=== PATIENT | female | born 1960 | race Caucasian/White ===

== ENCOUNTER 2021-12-31 14:42 | Emergency (ER) | payer MEDICAID, SELFPAY ==
[2021-12-31 14:43] VITALS: BP 119/58; PULSE 76; RESP 18; TEMP 36.2; O2SAT 98; BMI 37.0
--- NOTE | 2021-12-31 15:42 | CT_ITS ---
PROCEDURE INFORMATION: Exam: CT Lumbar Spine Without Contrast Exam date and time: 12/31/2021 3:42 PM Age: 61 years old Clinical indication: Low back pain; Additional info: Acute on chronic lumbar pain after carrying 20lbs TECHNIQUE: Imaging protocol: Computed tomography images of the lumbar spine without contrast. Radiation optimization: All CT scans at this facility use at least one of these dose optimization techniques: automated exposure control; mA and/or kV adjustment per patient size (includes targeted exams where dose is matched to clinical indication); or iterative reconstruction. COMPARISON: CT LUMBAR SPINE WO CON 10/05/2019 5:22 PM FINDINGS: Vertebrae: No acute skeletal pathology. Severe multilevel degenerative changes of the spine, as manifested by multilevel anterior osteophytes and multilevel decrease in intervertebral disc space. There is stable grade 1 retrolisthesis of L3 in relation to L4, causing [id number] central canal stenosis at this level. Findings are stable. There is no evidence of acutely displaced fractures. Discs/Spinal canal/Neural foramina: Near complete loss of the intervertebral disc space at L5-S1 with evidence of early chronic fusion. There is grade 1 retrolisthesis of L5 in relation to S1, causing stable mild central canal stenosis at this level. There is stable moderate bilateral bony neural foraminal stenosis appreciated at L4-L5 and L5-S1. There is mild bilateral neural foraminal stenosis at L3-L4, also stable. No other significant neural foraminal stenosis appreciated. Remainder of the spinal canal is patent. Other bones/joints: There is no evidence of joint dislocation. No aggressive osseous lesions. Intraperitoneal space: The visualized intra-abdominal structures demonstrate no acute findings. Vasculature: The vasculature demonstrates diffuse moderate atherosclerotic calcification. Soft tissues: No significant prevertebral or paravertebral soft tissue swelling. IMPRESSION: Severe and stable multilevel degenerative changes without acute skeletal pathology.
--- NOTE | 2021-12-31 15:46 | HMH.EDGENADL ---
ED Disposition Clinical Impression: Lumbar radiculopathy, Acute exacerbation of chronic low back pain Disposition: Home, Self-Care Condition on Discharge: Good Instructions: DI for Low Back Pain Prescriptions: Lidocaine [Lidocaine 5% patch] 1 patch TP Q24H PRN #4 patch PRN Reason: back pain Transmission Status: Pending to [facility] methocarbamoL [Methocarbamol 500mg Tablet] 500 mg PO BID PRN 10 Days #20 tab PRN Reason: back spasm Transmission Status: Pending to [facility] Gabapentin [Neurontin 300mg capsule] 300 mg PO BID 10 Days #20 cap Transmission Status: Sent to [facility] Oxycodone HCl [Oxycodone 5mg tab (IR)] 5 mg PO Q6H PRN #6 tab PRN Reason: severe back pain Transmission Status: Sent to [facility] Referrals: Dayan Jones [Primary Care Provider] - - Critical Care Critical Care Time: No Attestation: On 12/31/21, the high probability of a clinically significant, sudden or life threatening deterioration of the following system(s) required my full and direct attention, intervention and personal management. The time I documented below is in addition to time spent performing reported procedures but includes the following listed in this critical care notation. Medical Decision Making - Jackson Inquiry Pt receiving controlled substance: Yes Jackson was queried for this patient: Yes Risks and benefits of using a controlled substance: were discussed with pt by me Vital Signs: 12/31/21 14:43 Temperature 97.1 F L Temperature Source Oral Pulse Rate [Radial] 76 Respiratory Rate 18 Blood Pressure [Right Arm] 119/58 L Blood Pressure Mean [Right Arm] 78 Blood Pressure Position [Right Arm] Sitting 02 Sat by Pulse Oximetry 98 Oxygen Delivery Method Room Air Orders (Tests/Meds): ED MEDICATIONS Generic Name Dose Route Start Last Admin Trade Name Freq PRN Reason Stop Dose Admin Methocarbamol 750 mg 12/31/21 21:00 12/31/21 15:51 Methocarbamol 500mg Tablet PO 01/30/22 20:59 750 mg BID LESTER Administration Oxycodone HCl 5 mg 12/31/21 16:26 12/31/21 16:35 Oxycodone 5mg Immediate Release Tablet PO 01/30/22 16:25 5 mg Q4HP PRN Administration Severe Pain Discontinued Medications Generic Name Dose Route Start Last Admin Trade Name Carlos Enrique PRN Reason Stop Dose Admin Acetaminophen 1,000 mg 12/31/21 15:42 12/31/21 15:50 Acetaminophen 500mg Tab PO 12/31/21 15:43 1,000 mg ONCE ONE Administration Gabapentin 300 mg 12/31/21 16:04 12/31/21 16:08 Gabapentin 300mg Capsule PO 12/31/21 16:05 300 mg ONCE ONE Administration Ketorolac Tromethamine 15 mg 12/31/21 15:42 12/31/21 15:50 Ketorolac 30mg/Ml Vial IM 12/31/21 15:43 15 mg ONCE ONE Administration Lidocaine 1 each 12/31/21 15:42 12/31/21 15:50 Lidocaine 5% Transdermal Patch TP 12/31/21 15:43 1 each ONCE ONE Administration Medical Decision Narrative: 61 yo female with history of CLBP w/ sciatica presents for atraumatic acute flare of chronic left lower back pain with radiation to LLE. No acute neuro deficits. Back pain red flags reviewed per hpi. Has positive straight leg test on left and positive cross straight leg test as well. No saddle anesthesia. DDx includes but not limited to muscle spasm, muscle strain, lumbar radiculopathy, lumbar spine fracture or dislocation, herniated disc. No recent illness and no acute severe pain prior to this incident of carrying heavy weight. Other causes of left lower back pain considered included aortic pathology, renal pathology including nephrolithiasis, intraabdominal pathology such as abscess, colitis, diverticulitis, skeletal pathology including hip or pelvis injury. These were deemed less likely given patient's reported history, pattern of pain, signs on exam. Patient given robaxin, lidocaine patch, tylenol, toradol, gabapentin here in the ED for pain. CT lumbar spine ordered. CT lum
[2021-12-31 18:46] VITALS: BP 135/60; PULSE 88; RESP 18; TEMP 36.4; O2SAT 98
== END 2021-12-31 18:49 | disposition home or self-care (01) ==
PROVIDERS: Emergency Provider Student in an Organized Health Care Education/Training Program; PCP Nurse Practitioner Family
DX: M54.16 Radiculopathy, lumbar region (principal); M54.50 Low back pain, unspecified; X50.0XXA Overexertion from strenuous movement or load, initial encounter; Y92.019 Unspecified place in single-family (private) house as the place of occurrence of the external cause
CPT/HCPCS: 72131; 96372; 99282; 99284

== ENCOUNTER 2022-02-05 13:23 | Emergency (ER) | payer MEDICAID, SELFPAY ==
[2022-02-05] VITALS (7 sets, daily range): BP systolic 120–153; BP diastolic 57–90; PULSE 64–86; RESP 16; TEMP 36.6–37; O2SAT 98–99; BMI 37.0
--- NOTE | 2022-02-05 14:49 | PC.NURSE ---
pt sitting in bed resting
--- NOTE | 2022-02-05 16:26 | HMH.EDGENADL ---
ED Disposition Clinical Impression: Low back pain Qualifiers: Chronicity: chronic Back pain laterality: bilateral Sciatica presence: with sciatica Sciatica laterality: bilateral sciatica Qualified Code(s): M54.42 - Lumbago with sciatica, left side; M54.41 - Lumbago with sciatica, right side; G89.29 - Other chronic pain Disposition: Home, Self-Care Condition on Discharge: Fair Additional Instructions: Tylenol 3, then Percocet as prescribed. Medrol Dosepak as prescribed. Follow-up for your MRI and spine surgeon appointments as previously scheduled. Return to the emergency department if worsening pain, worsening weakness of the legs, numbness of groin area. Additional instructions for CONTROLLED SUBSTANCES: You have been prescribed a medication that is a controlled substance. Controlled substances include pain medications known as opiates and sedative nerve medications known as benzodiazepines. Tramadol, fioricet, and gabapentin are also controlled substances. Some common opiates include: Codeine (such as Tylenol #3) Hydrocodone (Vicodin, Lortab, Lorcet, [place]) Oxycodone (Percocet, Percodan, Oxycodone, Oxy IR) Some common benzodiazepines include: Diazepam (Valium) Lorazepam (Ativan) Alprazolam (Xanax) Clonazepam (Klonopin) Oxazepam (Serax) All of these controlled substances are highly addictive and frequently abused. Misuse can and frequently does lead to addiction as well as overdose and . Medication should be stored in a locked cabinet or other secure storage unit. Do not store the medication in a motor vehicle. Short term supplies, 3 days or less, are prescribed because of the highly addictive nature of the medication. Any of the controlled substance medication NOT taken should be disposed of properly and NOT SAVED. The recommended method of disposing of unused medications is: Place the medicines in a sealable plastic bag. If the medicine is a solid, crush it or add water to dissolve it. Add something undesirable (cat litter, coffee grounds, etc.) Dispose of sealed bag in household trash Do not flush or pour unused medicines down a sink or drain. Controlled substances should not be shared, given away or sold. Because of the addictive nature and frequent abuse, these medications are sometimes stolen. These medications should be kept in a safe place where they cannot be stolen. Do not keep them in your car or purse. Lost or stolen prescriptions for controlled substances WILL NOT BE REFILLED in this emergency department, regardless of whether a police report was filed. Prescriptions: Oxycodone HCl/Acetaminophen [Percocet 5/325mg tablet] 1 tab PO Q6HP PRN #10 tablet PRN Reason: Moderate To Severe Pain Transmission Status: Sent to [id number] methylPREDNISolone [Medrol 4mg tab] 4 mg PO DIRECTED #21 tab Transmission Status: Pending to [facility] # Referrals: Dayan Jones [Primary Care Provider] - - Critical Care Critical Care Time: No Attestation: On 02/05/22, the high probability of a clinically significant, sudden or life threatening deterioration of the following system(s) required my full and direct attention, intervention and personal management. The time I documented below is in addition to time spent performing reported procedures but includes the following listed in this critical care notation. Medical Decision Making - Medical Records Medical records reviewed: Yes: I reviewed the patient's medical records. MR Comment: Reviewed emergency department note and CT lumbar spine report from 12/31/2021. - Jackson Inquiry Pt receiving controlled substance: Yes Jackson was queried for this patient: Yes Risks and benefits of using a controlled substance: were discussed with pt by me Vital Signs: 02/05/22 13:05 02/05/22 14:00 02/05/22 14:31 Temperature 98.6 F Temperature Source Oral Pulse Rate 64 69 Pulse Rate [Radial] 86 Respirat
== END 2022-02-05 17:52 | disposition home or self-care (01) ==
PROVIDERS: Emergency Provider Emergency Medicine; PCP Nurse Practitioner Family
DX: M54.41 Lumbago with sciatica, right side (principal); G89.29 Other chronic pain; F17.210 Nicotine dependence, cigarettes, uncomplicated
CPT/HCPCS: 96372; 99213; G0463; J2405

== ENCOUNTER → 2022-02-13 12:23 | Outpatient (CLI) | payer MEDICAID, SELFPAY ==
--- NOTE | 2022-02-13 12:59 | MR_ITS ---
FINAL REPORT CLINICAL HISTORY: BACK PAIN. lbp [id number]. no injury or trauma. pain, numbness and tingling down both legs. FINDINGS: Multiplanar MR imaging of the lumbar spine was performed without contrast. On the sagittal T2-weighted images, disc degeneration is seen throughout. There are endplate changes at multiple levels, worse at L5-S1. There is mild retrolisthesis of L3 on L4, L4 and L5 and L5 on S1. Severe disc space narrowing is seen at L5-S1. there is no evidence of fracture. No bony mass is identified. The conus is seen at approximately the L1 level and has an unremarkable appearance. T12-L1: Annular disc bulge with facet arthropathy and small central disc protrusion. L1-2: Annular disc bulge and small central disc protrusion. L2-3: Annular disc bulge with facet arthropathy and osteophytes. There is mild right neuroforaminal narrowing. L3-4: Annular disc bulge with facet arthropathy and osteophytes. There is moderate bilateral neuroforaminal narrowing. There is moderate central canal stenosis with AP diameter of the thecal sac measuring 5 mm. L4-5: Annular disc bulge with facet arthrosis and osteophytes. There is moderate bilateral neuroforaminal narrowing. L5-S1: Annular disc bulge with facet arthropathy and osteophytes. There is severe bilateral neuroforaminal narrowing. IMPRESSION: Multilevel degenerative disc disease with moderate central canal stenosis at L3-4 and severe bilateral neuroforaminal narrowing at L5-S1. Reviewed, Interpreted and Dictated by Jose Carlos Pineda III, MD Transcribed by Denise Rivera Authenticated by Jose Carlos Pineda III, MD on 02/13/2022 02:20:34 PM [facility]
== END ==
PROVIDERS: PCP Nurse Practitioner Family; Visit Provider Orthopaedic Surgery
DX: M54.9 Dorsalgia, unspecified (principal)
CPT/HCPCS: 72148; 76376